=== PATIENT | male | born 1975 | race Caucasian/White ===

== ENCOUNTER 2020-09-10 21:50 | Observation (INO) | payer SELFPAY ==
[2020-09-10 21:54] VITALS: BP 158/97; PULSE 88; RESP 18; TEMP 36; O2SAT 95; BMI 32.1
[2020-09-10 22:09] VITALS: RESP 18
[2020-09-10] MEDS: Ondansetron 4 MG/2 ML Vial IV (22:56)
[2020-09-10] MEDS: HYDROmorphone 1 MG/ML Syringe IV (22:56)
[2020-09-10 23:10] LABS: Absolute Lymphocyte Count 2.16 X10^3/uL (0.83-4.51); Absolute Neutrophil Count 8.8 X10^3/uL (2.0-7.7); Basophil# 0.03 X10^3/uL; Basophil% 0.3 % (0-1); Eosinophil# 0.07 X10^3/uL; Eosinophils% 0.6 % (0-5); Hemoglobin 15.8 g/dL (13.0-16.5); Lymphocyte # 2.16 X10^3/ul (4.0); Lymphocyte % 18.3 % (19-41); Mean Corp Hgb Conc 34.3 g/dL (32-36); Mean Corpuscular Hgb 29.2 pg (27.0-32.0); Mean Corpuscular Volume 84.9 fL (80-94); Mean Platelet Vol. 8.2 fl (6.2-12.0); Monocyte# 0.69 X10^3/uL; Monocyte% 5.8 % (0-10); NRBC Flagged by Analyzer 0 % (0-5); Neutrophil # 8.77 X10^3/uL (2.7-7.7); Neutrophil % 74.3 % (47-70); Platelet Count 320 K/mm3 (150-450); RBC Distribution Width CV 12.5 % (11.6-14.6); RBC Distribution Width SD 38.3 fl (35.1-43.9); Red Blood Count 5.42 M/mm3 (4.6-6.2); White Blood Count 11.8 K/mm3 (4.4-11.0)
[2020-09-10 23:20] LABS: Anion Gap 6 (5-15); BUN 18 mg/dL (7-18); BUN/Creat Ratio 20.4 RATIO (10-20); Calcium,Total 8.8 mg/dL (8.5-10.1); Chloride 107 mmol/L (98-107); Creatinine, Serum 0.88 mg/dL (0.70-1.30); EST Glomerular Filtration Rate 99 mL/min (>60); Est Glom Filt Rate - Afr Amer 119 mL/min (>60); Glucose 127 mg/dL (74-106); Potassium 3.8 mmol/L (3.5-5.1); Sodium Level 139 mmol/L (136-145)
--- NOTE | 2020-09-10 23:48 | CT_ITS ---
STUDY: CT LUMBAR SPINE WITH CONTRAST REASON FOR EXAM: Male, 45 years old. LOW BACK PAIN RADIATING INTO LT LEG,PT HAS KNOWN DVT LT LEG AND RECENTLY STARTED XARELTO RADIATION DOSAGE (If Supplied By Facility): CTDIvol = ( 22.57 ) mGy, DLP = ( 683.93 ) mGycm TECHNIQUE: The patient was scanned in a multi detector CT scanner. High resolution transaxial imaging was performed following the intravenous administration of IV 100mL Isovue-370. Images were obtained from T11 to L5. Sagittal and coronal images were reconstructed. Individualized dose optimization techniques were used for this CT. COMPARISON: None FINDINGS: Normal lumbar lordosis. There is no substantial scoliosis. Normal vertebrae of the lumbar spine. L1-2: Normal endplates. Normal disc height and morphology. Normal bilateral facet joints. Normal central canal and bilateral lateral recesses. Normal bilateral intervertebral neural foramina. L2-3: There is mild disc space narrowing. There is a left lateral disc bulge with mild to moderate left neural foramina narrowing mild effacement of the anterior thecal sac. L3-4: There is mild disc space narrowing minimal broad disc bulge without significant neural foramina narrowing or central stenosis. L4-5: There is a minimal broad disc bulge without neural foramina narrowing or central stenosis. L5-S1: Air is disc space narrowing spondylosis. There is a broad left lateral disc osteophyte protrusion with the partially calcified disc extending well into the left neural foramen with moderate to severe left neural foramina narrowing. There is minimal central stenosis. There is minimal atherosclerotic disease within the left common iliac artery. CT/Spine Lumbar WITH Contrast IMPRESSION: Multilevel degenerative disc disease, most significant at the level of L5-S1 with a left lateral disc osteophyte protrusion and moderate to severe left neural foraminal narrowing. Given clinical history recommend consideration for follow-up MRI of the lumbar spine when clinically appropriate. Electronically Signed: Lorie Huff MD at 1:22 EDT Tel , Service support ,
--- NOTE | 2020-09-10 23:49 | ED.DCSUM_ITS ---
History of Present Illness Chief Complaint: Back Informant: Patient Onset: Weeks Context: Gradual Onset Timing: Waxes and wanes Current Severity: Severe Maximum Severity: Severe Narrative: Patient presents secondary to severe back pain secondary to sciatica. He states he has had sciatica previously. He is currently scheduled for MRI to be performed tomorrow. He presents via EMS tonight secondary to increased pain. He is currently on Neurontin, [place], and prednisone. Patient states is not really been able to walk for a week, requiring a walker to help him get around or a wheelchair. He was seen by his PCP on Wednesday and had an x-ray that showed chronic changes. He had a venous ultrasound of his left leg yesterday that shows an acute clot in the left gastrocnemius. He was started on Xarelto and has had 3 doses of this medication. - Past Medical History (1) Back pain Status: Chronic Past Medical History - Allergies and Home Meds Allergies/Adverse Reactions: Allergies No Known Allergies Allergy (Verified 09/10/20 21:53) Primary Care Physician: Evaristo Santoro DO [Primary Care Provider] - Lives: With Family Smoking Status: Never smoker Review of Systems General: Denies: Chills, Fever Eyes: Denies: Visual changes - bilaterally ENT: Denies: Bilateral ear pain Cardiovascular: Denies: Chest pain Respiratory: Denies: Dyspnea, Cough Gastrointestinal: Denies: Abdominal pain, Nausea, Vomiting, Diarrhea Musculoskeletal: Reports: Back pain, Extremity Pain Skin: Denies: Rash Neurological: Denies: Parasthesia Hematologic: Denies: Easy bruising, Easy bleeding Allergy: Denies: Uticaria Physical Exam Vital Signs/Narrative: Vital Signs Temp Pulse Resp BP Pulse Ox 09/10/20 22:09 18 09/10/20 21:54 96.8 F L 88 18 158/97 H 95 Inital Vital Signs reviewed: Yes General: Well nourished, Well developed Head: Normocephalic ENT: Moist mucous membranes Neck: Supple Cardiovascular: Regular rate, Regular rhythm Respiratory: No distress, CTA bilaterally Abdomen: Soft, Nontender Back: - - Pain in the left lower lumbar paraspinal muscles. Extremities: - - Tenderness along the lateral portion of the left lower leg. Strong distal pulses. Skin: Normal color Neurological: Alert, Oriented x3, - - Normal sensation on testing. Decreased range of motion secondary to pain. Psychological: Normal affect Diagnostic/Tx/Re-eval Impressions Lumbar Spine CT 09/10/20 23:48 IMPRESSION: Multilevel degenerative disc disease, most significant at the level of L5-S1 with a left lateral disc osteophyte protrusion and moderate to severe left neural foraminal narrowing. Given clinical history recommend consideration for follow-up MRI of the lumbar spine when clinically appropriate. Electronically Signed: Lorie Huff MD at 1:22 EDT Tel , Service support , 09/10/20 23:48 CT Lumbar [Spine Lumbar WITH Contrast] [CT] Stat Laboratory Results 09/10/20 09/10/20 23:00 23:00 WBC 11.8 H RBC 5.42 Hgb 15.8 Hct 46.0 MCV 84.9 MCH 29.2 MCHC 34.3 RDW Std Deviation 38.3 RDW Coeff of Carly 12.5 Plt Count 320 MPV 8.2 Immature Gran % (Auto) 0.700 Neut % (Auto) 74.3 H Lymph % (Auto) 18.3 L [place] % (Auto) 5.8 Eos % (Auto) 0.6 Baso % (Auto) 0.3 Absolute Neuts (auto) 8.8 H Absolute Lymphs (auto) 2.16 Nucleated RBC % 0 Sodium 139 Potassium 3.8 Chloride 107 Carbon Dioxide 26.0 Anion Gap 6 BUN 18 Creatinine 0.88 Estim Creat Clear Calc 100.40 Est GFR (MDRD) Af Amer 119 Est GFR (MDRD) Non-Af 99 BUN/Creatinine Ratio 20.4 H Glucose 127 H Calcium 8.8 - Medical Decision Making Patient has been given a total of 1.5 mg of Dilaudid along with 0.5 mg of Ativan. Because the patient was just started on Xarelto and had increased back pain a CT scan of the lumbar spine was obtained to rule out hemorrhage. CT reveals multilevel degenerative disc disease most significant at L5-S1 with left lateral disc osteophyte protrusion and moderate to severe left neural foraminal narrowing. MRI is recommended. At this time patient is still unable to get up and ambulate. I will speak with hospitalist regarding admission for pain control as well as obtaining MRI. Of note I was able to obtain the venous duplex report from [facility]. There was no evidence of clot in the femoral, popliteal, great saphenous, or peroneal veins. ED Disposition - Plan for ED Patient: Disposition: Acute Care Hospital [facility] Diagnosis: Intractable back pain Referrals: Evaristo Santoro DO [Primary Care Provider] -
[2020-09-11] VITALS (14 sets, daily range): BP systolic 120–188; BP diastolic 84–110; PULSE 73–114; RESP 17–22; TEMP 36.1–37.1; O2SAT 92–97; BMI 31.2; BMI 31.3
[2020-09-11] MEDS: HYDROmorphone 0.5 MG/0.5 ML SYRINGE IV (00:02)
[2020-09-11] MEDS: LORazepam 2 MG/ML Syringe 0.5 MG IV (00:28)
--- NOTE | 2020-09-11 01:51 | HP.PCM_ITS ---
Problem List (1) Back pain Status: Chronic (2) Intractable back pain Status: Acute History of Present Illness Date of Admission: 09/11/20 Chief Complaint: Back pain, left leg pain. The patient is a 45 year old M with no significant past medical history apart from chronic back pain presented to the emergency room because of back and left lower extremity pain. This patient does have a history of chronic back pain but over the last 8 days, he has been having increasing low back pain, constant severe pain, 10 out of 10 in severity, goes down along the posterior aspect of the left thigh as well as left leg, most severe at the left knee area, aggravated by any type of movement, has not able to to ambulate over the last couple of days, no relieving factors and no associated symptoms. He denied numbness or tingling. He denied mechanical fall or trauma. He denied stool or urine incontinence. He saw his PCP 6 days ago, was given prescription for prednisone, gabapentin and [employer] and he is supposed to have MRI lumbar spine done tomorrow at [facility]. He was diagnosed with acute DVT of the left gastrocnemius vein on venous Doppler that was done on September 09, 2020 at [facility] and he was started on Xarelto. In the emergency department, his blood pressure was slightly elevated, other vital signs were stable. His routine blood work was unremarkable. CT scan lumbar spine with contrast revealed multilevel degenerative disc disease, most significant at the level of L5-S1 with left lateral disc protrusion and moderate to severe left neuroforaminal narrowing. Patient received 2 doses of IV Dilaudid in the ED as well as Ativan x1 without significant improvement and he was not able to ambulate. He is being admitted for intractable low back pain for evaluation and treatment. Past Medical History Past Medical History (Chronic Problems): Chronic Problems Back pain (Chronic) Allergies No Known Allergies Allergy (Verified 09/10/20 21:53) Home Medications: Ambulatory Orders Medication Instructions Recorded Gabapentin [Neurontin] 1,200 mg PO BIDCM 09/10/20 Hydrocodone/Acetaminophen 1 ea PO Q6H PRN 09/10/20 [Hydrocodon-Acetaminophen 5-325] Prednisone 10 mg PO DAILY 09/10/20 Rivaroxaban [Xarelto] 15 mg PO BID 09/10/20 Surgical History: no surgical history Psychiatric History: No pertinent psych hx Lives: Spouse/ Significant Other Smoking Status: Never smoker Alcohol: None Drugs: None - *Family History Maternal History Items: No pertinent history Paternal History Items: No pertinent history Review of Systems Constitutional: Denies: Anorexia, Chills, Fever, Weakness Eyes: Denies: Blurred vision, Double vision, Drainage, Redness HEENT: Denies: Difficulty Hearing, Ear Pain, Eye Pain, Nasal Congestion, Sore Throat Cardiovascular: Denies: Chest Pain, Chest Pressure, Edema, Heaviness, Palpitations, Syncope Respiratory: Denies: Cough, Pleuritic Pain, Shortness of Breath, Shortness of breath at rest, Sputum production, Wheezing Gastrointestinal: Denies: Abdominal Pain, Constipation, Diarrhea, Nausea, Vomiting Genitourinary: Denies: Dysuria, Frequency, Hematuria Musculoskeletal: Reports: Back Pain, Leg Pain. Denies: Arm Pain, Foot Pain, Hand Pain Skin: Denies: Dryness, Rash Neurological: Denies: Balance problems, Blurred vision, Double vision, Change in Speech, Confusion, Headaches, Incoordination, Numbness, Tingling Psychiatric: Denies: Anxiety, Depression Endocrine: Denies: Change in Body Habitus, Polydipsia, Polyuria VTE Information - Inpt Only VTE Present on Admission: No VTE Mechan Device Prophylaxis: None VTE Pharm Prophylaxis ordered?: No Patient Problems: Active and Suspected Problems Intractable back pain (Acute) - Physical Exam Vitals/I&O's: Vital Signs Temp Pulse Resp BP Pulse Ox 96.8 F L 81 18 154/88 H 93 09/10/20 21:54 09/11/20 00:31 09/11/20 00:31 09/11/20 00:31 09/11/20 00:31 Oxygen Delivery Method Room Air Weight: 211 lb 10.3 oz Body Mass Index (BMI) 32.1 General: Alert, Oriented x3, Cooperative, - - He is in moderate to severe pain. HEENT: Atraumatic, PERRLA, EOMI, Normocephalic Oral: Moist Mucosa, No Gingival or Mucosal Lesions/ Ulcerations Neck: Supple, No JVD, Negative Carotid Bruits, Trachea Midline, Thyroid Normal Size and Texture Lungs: Clear to auscultation, Normal air movement, No rhonchi, No wheeze, No rales Cardiovascular: Regular rate, Regular Rhythm, Normal S1, Normal S2, PMI Normal Abdomen: Bowel Sounds Present, Soft, Non Tender, Non-Distended, No Hepato- splenomegaly Extremities: No clubbing, No cyanosis, No edema Skin: No rashes, No breakdown Lymphatic: No Cervical, Supraclavicular, or Inguinal Adenopathy Neurological: Cranial nerves II-XII grossly intact, Motor Exam 5/5 strength throughout Psych/Mental Status: Normal Affect, Appropriate, Alert and oriented to time, place, person, mood and affect Laboratory Results 09/10/20 23:00: WBC 11.8 H, RBC 5.42, Hgb 15.8, Hct 46.0, MCV 84.9, MCH 29.2, MCHC 34.3, RDW Std Deviation 38.3, RDW Coeff of Carly 12.5, Plt Count 320, MPV 8.2, Immature Gran % (Auto) 0.700, Neut % (Auto) 74.3 H, Lymph % (Auto) 18.3 L, [place] % (Auto) 5.8, Eos % (Auto) 0.6, Baso % (Auto) 0.3, Absolute Neuts (auto) 8.8 H, Absolute Lymphs (auto) 2.16, Nucleated RBC % 0 09/10/20 23:00: Sodium 139, Potassium 3.8, Chloride 107, Carbon Dioxide 26.0, Anion Gap 6, BUN 18, Creatinine 0.88, Estim Creat Clear Calc 100.40, Est GFR (MDRD) Af Amer 119, Est GFR (MDRD) Non-Af 99, BUN/Creatinine Ratio 20.4 H, Glucose 127 H, Calcium 8.8 Clinical Impression(s) from Imaging Studies Lumbar Spine CT 09/10/20 23:48 IMPRESSION: Multilevel degenerative disc disease, most significant at the level of L5-S1 with a left lateral disc osteophyte protrusion and moderate to severe left neural foraminal narrowing. Given clinical history recommend consideration for follow-up MRI of the lumbar spine when clinically appropriate. Electronically Signed: Lorie Huff MD at 1:22 EDT Tel , Service support , Assessment/Plan All Active Problems Intractable back pain (Acute) This is a 45 years old male patient presented to the emergency room because of low back pain as well as left lower extremity pain, found to have L5-S1 left lateral disc protrusion with moderate to severe left neural foraminal narrowing and he is being admitted for evaluation and treatment. #1 intractable low back/left lower extremity pain/sciatica/radiculopathy: In the setting of chronic back pain. CT scan of the lumbar spine with contrast reviewed as above. Patient received IV Dilaudid and Ativan in the ED without significant improvement, still not able to ambulate. Patient has been on prednisone as outpatient for the last 5 to 6 days with minimal improvement. [facility], IV fluids, IV morphine as needed for pain, start IV Decadron, Flexeril 3 times daily, Tylenol as needed, MRI lumbar spine without contrast, PT OT evaluation and treatment. #2 acute DVT of the left gastrocnemius vein: This was diagnosed on September 09, 2020, patient was started on Xarelto. Plan to continue Xarelto. #3 DVT prophylaxis: Continue Xarelto as above. This note was generated with [employer] dictation software. It may contain incorrect words, spelling, and punctuation that were not noted in checking the note before signing. OBSV E&M: 91510 Initial observation care L3
--- NOTE | 2020-09-11 02:31 | MRI_ITS ---
STUDY: MRI LUMBAR SPINE WITHOUT CONTRAST REASON FOR EXAM: Male, 45 years old. L5-S1 LEFT DISC PROTRUSION, LBP, LEFT LEG PAIN TECHNIQUE: Standardized fat and water weighted pulse sequences were obtained in the sagittal and axial planes. COMPARISON: None FINDINGS: T12-L1: Normal endplates. Normal disc height, hydration and morphology. Normal bilateral facet joints. Normal central canal and bilateral lateral recesses. Normal bilateral intervertebral neural foramina. Normal lumbar lordosis. There is no substantial scoliosis. Normal conus medullaris that terminates at the L1. L1-2: Normal endplates. Normal disc height, hydration and morphology. Normal bilateral facet joints. Normal central canal and bilateral lateral recesses. Normal bilateral intervertebral neural foramina. L2-3: Mild bilobed disc protrusion with a central annular tear produces mild spinal stenosis and mild bilateral neural foraminal stenosis. L3-4: Normal endplates. Normal disc height, hydration and morphology. Normal bilateral facet joints. Normal central canal and bilateral lateral recesses. Normal bilateral intervertebral neural foramina. L4-5: Normal endplates. Normal disc height, hydration and morphology. Normal bilateral facet joints. Normal central canal and bilateral lateral recesses. Normal bilateral intervertebral neural foramina. L5-S1: Mild bilateral facet hypertrophy with fluid in the facet joints consistent with instability. 2 mm retrolisthesis of L5 on S1 with a mild broad disc protrusion asymmetric to the left produces mild spinal stenosis, mild right neural foraminal stenosis and severe left neural foraminal stenosis with effacement the left L5 nerve root laterally. Associated Modic type II endplate changes. Normal visualized sacral ala. Severe friction related edema of the posterior subcutaneous fat. MRI/Spine Lumbar (Routine) IMPRESSION: Multilevel degenerative changes, as described above. Electronically Signed: Wes Madrid MD at 16:02 EDT Tel , Service support ,
[2020-09-11] MEDS: 0.9% Saline Lock 10 ML Syringe IV ×6 (03:29→21:50)
[2020-09-11] MEDS: 0.9% Normal Saline 1,000 ML 100 ML IV (03:29)
[2020-09-11] MEDS: oxyCODONE 5 MG Tablet PO (03:29)
[2020-09-11] MEDS: Morphine 2 MG/ML Syringe IV ×3 (04:48→14:15)
[2020-09-11] MEDS: cycloBENZAPRine HCl 10 MG Tablet PO ×3 (06:21→21:46)
[2020-09-11] MEDS: dexAMETHasone 4 MG/ML Vial IV ×3 (06:21→21:46)
[2020-09-11] MEDS: LORazepam 2 MG/ML Syringe 1 MG IV ×2 (08:44→14:39)
--- NOTE | 2020-09-11 09:22 | NURSING ---
MERI VILLAVICENCIO AWARE THAT PT IS NOT ABLE TO TOLERATE SUPINE POSITION EVEN WITH LUMBAR SUPPORT. PT FEELS MOST COMFORTABLY WITH KNEES HIGH IN AIR, BUT IS UNABLE TO FIT IN SCANNER. DR MARTINEZ NOTIFIED BY MARYJANE JEREZ ORDER GIVEN. AWAITING MED FROM FLOOR.
[2020-09-11] MEDS: HYDROmorphone 1 MG/ML Syringe IV ×2 (09:42→14:39)
--- NOTE | 2020-09-11 09:47 | NURSING ---
DILAUDID DELIVERED TO MRI BY SAUD JEREZ. PT GIVEN MED PER ORDER FOR PAIN 10/10 WHILE LYING FLAT. PT POSITIONED SUPINE COMFORTABLY POSSIBLE. STILL MOANING. EMOTIONAL SUPPORT AND ENCOURAGEMENT GIVEN.
--- NOTE | 2020-09-11 09:56 | NURSING ---
REPORT CALLED TO JESSICA DEGROOT RN. PT UNABLE TO TOLERATE MRI SUPINE WITH SUPPORTS. PT VERY RELAXED IN A POSITION OF COMFORT, BUT PAIN CONTINUES TO BE 10 /10 WHILE LAYING SUPINE.
[2020-09-11] MEDS: Gabapentin 600 MG Tablet 1200 MG PO ×2 (10:42→17:23)
[2020-09-11] MEDS: Rivaroxaban 15 MG Tablet PO ×2 (10:42→17:23)
--- NOTE | 2020-09-11 11:01 | CASEMGMT ---
Social Work Note Pt is listed as being self-pay. SW in to speak with pt. SW introduced self and role at [facility]. Pt is alert an orientated x3. Pt confirms that he doesn't have insurance. Pt states he currently works but his employer doesn't provide insurance. Pt states he's never applied for Medicaid before. SW provided pt with financial resources including HCAP application, Medicaid Application, Zoe Miles, [employer], People [employer] People, Rx assistance programs, Prescription Hope and Good [employer] information. Pt denied additional needs or concerns. Zainab Dean ROTO G[employer]URE PRESS OPERATOR, RECORDS MANAGEMENT MANAGER
--- NOTE | 2020-09-11 11:59 | PCM.PN.HOSP ---
Patient Problems: Active and Suspected Problems Intractable back pain (Acute) Subjective: Patient seen and examined. He was admitted with a complaint of intractable back pain. Does have a history of chronic back pain due to sciatica and states the pain has been worsening. He had no associated urine or stool incontinence. He was due to have an MRI today at [facility]. He had also recently been diagnosed with DVT of the left gastrocnemius vein on September 09, [address] of the lumbar spine done showed multilevel tests degenerative disease most significant at the level of L5-S1 with lateral left disc protrusion and moderate to severe left neural foraminal narrowing. He is currently on Dilaudid. Patient seen and examined. He still complains of being in pain. He states he could even straighten his left leg due to pain. Review of signs otherwise negative. He attempted to have MRI this morning but was unable to tolerate it due to pain and is due to reattempt later today. Labs and vitals reviewed. Patient has been tachypneic and tachycardic likely due to pain. Vitals/I&O's: Vital Signs Temp Pulse Resp BP Pulse Ox 97.9 F 110 H 22 H 188/110 H 95 09/11/20 08:40 09/11/20 09:55 09/11/20 09:55 09/11/20 09:55 09/11/20 09:55 Oxygen Flow Rate (L/min) 2 Oxygen Delivery Method Nasal Cannula Weight: 205 lb 11.06 oz Body Mass Index (BMI) 31.2 Intake and Output for Last 24 Hours 09/09/20 09/10/20 09/11/20 23:59 23:59 23:59 Intake Total 1166.67 / 1166.67 Output Total 500 / 500 Balance 666.67 / 666.67 General: Alert, Oriented x3, Cooperative, Lethargic, - - in moderate distress due to pain HEENT: Atraumatic, PERRLA, EOMI, Normocephalic Oral: Dry Mucosa Neck: Supple, No JVD, Negative Carotid Bruits Lungs: Clear to auscultation, Normal air movement Cardiovascular: Regular rate, Regular Rhythm, Normal S1, Normal S2, No murmurs Abdomen: Bowel Sounds Present, Soft, Non Tender, Non-Distended, No Hepato-splenomegaly Extremities: No clubbing, No cyanosis, No edema, Capillary Refill Less than 3 Seconds Skin: No rashes, No breakdown Musculoskeletal: No Tenderness to Palpation of Joints or Extremities Lymphatic: No Cervical, Supraclavicular, or Inguinal Adenopathy Neurological: Cranial nerves II-XII grossly intact, - - left leg flexed at knee, patient unable to straighten leg due to pain. Patient unable to even sit up due to pain Psych/Mental Status: Anxious Laboratory Results 09/10/20 23:00: WBC 11.8 H, RBC 5.42, Hgb 15.8, Hct 46.0, MCV 84.9, MCH 29.2, MCHC 34.3, RDW Std Deviation 38.3, RDW Coeff of Carly 12.5, Plt Count 320, MPV 8.2, Immature Gran % (Auto) 0.700, Neut % (Auto) 74.3 H, Lymph % (Auto) 18.3 L, [place] % (Auto) 5.8, Eos % (Auto) 0.6, Baso % (Auto) 0.3, Absolute Neuts (auto) 8.8 H, Absolute Lymphs (auto) 2.16, Nucleated RBC % 0 09/10/20 23:00: Sodium 139, Potassium 3.8, Chloride 107, Carbon Dioxide 26.0, Anion Gap 6, BUN 18, Creatinine 0.88, Estim Creat Clear Calc 100.40, Est GFR (MDRD) Af Amer 119, Est GFR (MDRD) Non-Af 99, BUN/Creatinine Ratio 20.4 H, Glucose 127 H, Calcium 8.8 Diagnostic Data Lumbar Spine CT 09/10/20 23:48 IMPRESSION: Multilevel degenerative disc disease, most significant at the level of L5-S1 with a left lateral disc osteophyte protrusion and moderate to severe left neural foraminal narrowing. Given clinical history recommend consideration for follow-up MRI of the lumbar spine when clinically appropriate. Electronically Signed: Lorie Huff MD at 1:22 EDT Tel , Service support , Lumbar Spine MRI 09/11/20 02:31 IMPRESSION: Multilevel degenerative changes, as described above. Electronically Signed: Wes Madrid MD at 16:02 EDT Tel , Service support , Current Medications Acetaminophen (Acetaminophen 325 Mg Tablet) 650 mg PO Q6H PRN PRN PRN Reason: Pain Score 1-10/Temp > 100.7 F Cyclobenzaprine HCl (Cyclobenzaprine Hcl 10 Mg Tablet) 10 mg PO TID [facility] Last Admin: 09/11/20 06:21 Dose: 10 mg Documented by: Dexamethasone Sodium Phosphate (Dexamethasone 4 Mg/Ml Vial) 4 mg IV Q8 [facility] Last Admin: 09/11/20 06:21 Dose: 4 mg Documented by: Gabapentin (Gabapentin 600 Mg Tablet) 1,200 mg PO BIDCM [facility] Last Admin: 09/11/20 10:42 Dose: 1,200 mg Documented by: Sodium Chloride () 1,000 mls @ 100 mls/hr IV .Q10H [facility] Stop: 09/11/20 12:30 Last Infusion: 09/11/20 10:45 Dose: 100 mls/hr Documented by: Morphine Sulfate (Morphine 2 Mg/Ml Syringe) 2 mg IV Q3H PRN PRN PRN Reason: Pain Score 6-10 Last Admin: 09/11/20 08:44 Dose: 2 mg Documented by: Ondansetron HCl (Ondansetron 4 Mg/2 Ml Vial) 4 mg IV Q8H PRN PRN PRN Reason: NAUSEA/VOMITING Oxycodone HCl (Oxycodone 5 Mg Tablet) 5 mg PO Q4H PRN PRN PRN Reason: Pain Score 4-5 Last Admin: 09/11/20 03:29 Dose: 5 mg Documented by: Rivaroxaban ([facility] 15 Mg Tablet) [facility] Last Admin: 09/11/20 10:42 Dose: 15 mg Documented by: Senna/Docusate Sodium (Senna/Docusate Sodium 1 Tablet) 2 tablet PO BID PRN PRN PRN Reason: Constipation Sodium Chloride (0.9% Saline Lock 10 Ml Syringe) 10 - 40 ml IV UD PRN PRN Reason: SALINE FLUSH Last Admin: 09/11/20 08:44 Dose: 10 ml Documented by: STROKE Vital Signs/Narrative: Vital Signs Temp Pulse Resp BP Pulse Ox 09/11/20 09:55 110 H 22 H 188/110 H 95 09/11/20 09:45 105 H 20 H 166/103 H 93 09/11/20 09:21 92 20 H 166/103 H 92 09/11/20 08:40 97.9 F 73 18 146/84 H 94 Medical Necessity - Tobacco Use Smoking Status: Never smoker Assessment/Plan All Active Problems Intractable back pain (Acute) # Intractable lower back pain likely due to sciatica and radiculopathy MRI of the lumbar spine showed multilevel degenerative changes on IV morphine, dexamethasone, gabapentin and flexeril PT/OT on board consider spine surgery consult # DVT of the left gastrocnemius vein: on xarelto. Will need to be on xarelto for 3-6 months. DVT prophylaxis: on therapeutic xarelto OBSV E&M: 04399 Subsequent observation care L2
[2020-09-11] MEDS: Acetaminophen 325 MG Tablet 650 MG PO (14:36)
[2020-09-11] MEDS: Ondansetron 4 MG/2 ML Vial IV (14:45)
--- NOTE | 2020-09-11 15:11 | NURSING ---
PT TOLERATING MRI POSITION MUCH BETTER. GIVEN ICE PACK TO LT ANKLE FOR COMFORT.
[2020-09-12 03:57] VITALS: BP 139/81; PULSE 75; RESP 18; TEMP 36.6; O2SAT 94
[2020-09-12] MEDS: Morphine 2 MG/ML Syringe IV (05:51)
[2020-09-12] MEDS: dexAMETHasone 4 MG/ML Vial IV ×2 (05:52→13:55)
[2020-09-12] MEDS: cycloBENZAPRine HCl 10 MG Tablet PO ×2 (05:52→13:55)
[2020-09-12] MEDS: 0.9% Saline Lock 10 ML Syringe IV ×2 (05:55)
[2020-09-12 07:40] VITALS: O2SAT 91
[2020-09-12 09:00] VITALS: BP 164/87; PULSE 89; RESP 16; TEMP 36.9; O2SAT 92
[2020-09-12] MEDS: Gabapentin 600 MG Tablet 1200 MG PO (09:08)
[2020-09-12] MEDS: Rivaroxaban 15 MG Tablet PO (09:08)
[2020-09-12] MEDS: Senna/Docusate Sodium 1 Tablet 2 TABLET PO (09:08)
--- NOTE | 2020-09-12 11:54 | DCINST_ITS ---
- Discharge Diagnoses Current Active Problems: Current Active and Chronic Problems Back pain (Chronic) Intractable back pain (Acute) You will use the following diet at home:: No restrictions Your food should be the consistency of: Regular Your liquids should be the consistency of: Regular/Thin Discharge Activity: Return to Normal Activity Weight Bearing Status: Weight bearing as tolerated Call your doctor if you observe: Fever of 101 or Higher, Shortness of breath, Uncontrolled pain Instructions: ED Back Pain Acute or Chronic, ED Neck Back Pain General Additional Instructions: to have outpatient physical therapy Allergies/Adverse Reactions: Allergies No Known Allergies Allergy (Verified 09/10/20 21:53) Medications to take at Discharge Gabapentin [Neurontin] 1,200 mg PO BIDCM 09/10/20 Hydrocodone/Acetaminophen [Hydrocodone-Acetamin 5-325 mg] 1 ea PO Q6H PRN 09/10/20 Prednisone 10 mg PO DAILY 09/10/20 Rivaroxaban [Xarelto] 15 mg PO BID 09/10/20 Primary Care Physician: Evairsto Santoro DO [Primary Care Provider] - Please follow up with your Primary Care Physician in: 1-2 weeks Test Results: Test results from this visit will be discussed in further detail at your follow- up appointment, if applicable. Please Follow Up With: Howard Shipley DO When: 2-3 weeks, call office to set up appointment Proposed Discharge Date: 09/12/20
[2020-09-12] MEDS: Acetaminophen 325 MG Tablet 650 MG PO (12:13)
[2020-09-12] MEDS: oxyCODONE 5 MG Tablet PO (12:14)
--- NOTE | 2020-09-12 13:59 | DS.PCM_ITS ---
Discharge Date and Diagnosis - Problem List Patient Problems: Active and Suspected Problems Intractable back pain (Acute) Date of Admission: 09/11/20 Date of Discharge: 09/12/20 - Primary Discharge Diagnosis Acute Problems: Active Problems Intractable back pain (Acute) lumbar spinal stenosis - Secondary Discharge Diagnosis Chronic Problems: Chronic Problems Back pain (Chronic) Hospital Course and Treatment Imaging Results: Diagnostic Data Lumbar Spine CT 09/10/20 23:48 IMPRESSION: Multilevel degenerative disc disease, most significant at the level of L5-S1 with a left lateral disc osteophyte protrusion and moderate to severe left neural foraminal narrowing. Given clinical history recommend consideration for follow-up MRI of the lumbar spine when clinically appropriate. Electronically Signed: Lorie Huff MD at 1:22 EDT Tel , Service support , Lumbar Spine MRI 09/11/20 02:31 IMPRESSION: Multilevel degenerative changes, as described above. Electronically Signed: Wes Madrid MD at 16:02 EDT Tel , Service support , Operations: None Procedures: None Summary of Care Provided: The patient is a 45 year old M with a pMH of chronic back pain due to a work related back injury. He was admitted via the ED on 09/12/2020 with a complaint of severe back and left lower extremity pain. Pain has been getting worse over the past 8 days prior to admission and pain was rated at 10 out of 10 and radiated down the posterior aspect of the left thigh as well as the left leg and was aggravated by movement. He had had difficulty ambulating because of the pain but denied any numbness or tingling or any urinary or bowel incontinence. He saw his PCP 6 days prior to admission and was given a prescription for prednisone, gabapentin and [place]. He was also diagnosed with acute DVT of the left lower extremity on 09/09/2020 at [facility] and started on Xarelto. He had been scheduled to have MRI of the lumbar spine done on outpatient basis at [facility] on 09/12/2020 but symptoms started so he came into the hospital. CT of the lumbar spine done showed multilevel degenerative disc disease most significant at the L5-S1 level with left lateral disc protrusion and moderate to severe left neuroforaminal narrowing. Was admitted to be managed for intractable back pain due to lumbar stenosis. He was placed on IV Dilaudid and Flexeril as well as gabapentin. Patient had MRI done on 09/11/2020 which showed multilevel degenerative disc disease with spinal stenosis and neuroforaminal stenosis. Physical therapy worked with patient and he was able to ambulate with assistance of a walker. Patient's pain improved with treatment. He remained stable and was discharged home on 09/13/2020 and is to have outpatient physical therapy. He was discharged with a prescription for Flexeril which he is taking in addition to his [place] that he takes at home and gabapentin. Patient was referred to Dr. Howard Shipley spinal surgery for evaluation. He is to follow-up with his primary care doctor and to book an appointment with spinal surgery. Patient seen and examined prior to discharge. He had no complaints and pain had improved. Review of symptoms otherwise negative. Labs and vitals reviewed. Home medication reviewed and reconciled. was by his bedside. [] O/E: Vital Signs Temp Pulse Resp BP Pulse Ox 98.4 F 89 16 164/87 H 92 09/12/20 09:00 09/12/20 09:00 09/12/20 09:00 09/12/20 09:00 09/12/20 09:00 General: Alert, Oriented x3, Cooperative HEENT: Atraumatic, PERRLA, EOMI, Normocephalic Oral: Dry Mucosa Neck: Supple, No JVD, Negative Carotid Bruits Lungs: Clear to auscultation, Normal air movement Cardiovascular: Regular rate, Regular Rhythm, Normal S1, Normal S2, No murmurs Abdomen: Bowel Sounds Present, Soft, Non Tender, Non-Distended, No Hepato- splenomegaly Extremities: No clubbing, No cyanosis, No edema, Capillary Refill Less than 3 Seconds Skin: No rashes, No breakdown Musculoskeletal: No Tenderness to Palpation of Joints or Extremities Lymphatic: No Cervical, Supraclavicular, or Inguinal Adenopathy Neurological: Cranial nerves II-XII grossly intact, Psych/Mental Status: flat affect Patient Problems: Active and Suspected Problems Intractable back pain (Acute) - Physical Exam Vitals/I&O's: Vital Signs Temp Pulse Resp BP Pulse Ox 98.4 F 89 16 164/87 H 92 09/12/20 09:00 09/12/20 09:00 09/12/20 09:00 09/12/20 09:00 09/12/20 09:00 Oxygen Flow Rate (L/min) 2 Oxygen Delivery Method Room Air Weight: 205 lb 11.06 oz Body Mass Index (BMI) 31.2 Intake and Output for Last 24 Hours 09/10/20 09/11/20 09/12/20 23:59 23:59 23:59 Intake Total 2500.00 / 2500.00 500 / 500 Output Total 1800 / 1800 400 / 400 Balance 700.00 / 700.00 100 / 100 Current Medications Acetaminophen (Acetaminophen 325 Mg Tablet) 650 mg PO Q6H PRN PRN PRN Reason: Pain Score 1-10/Temp > 100.7 F Last Admin: 09/12/20 12:13 Dose: 650 mg Documented by: Cyclobenzaprine HCl (Cyclobenzaprine Hcl 10 Mg Tablet) 10 mg PO TID [facility] Last Admin: 09/12/20 13:55 Dose: 10 mg Documented by: Dexamethasone Sodium Phosphate (Dexamethasone 4 Mg/Ml Vial) 4 mg IV Q8 [facility] Last Admin: 09/12/20 13:55 Dose: 4 mg Documented by: Gabapentin (Gabapentin 600 Mg Tablet) 1,200 mg PO BIDCM [facility] Last Admin: 09/12/20 09:08 Dose: 1,200 mg Documented by: Morphine Sulfate (Morphine 2 Mg/Ml Syringe) 2 mg IV Q3H PRN PRN PRN Reason: Pain Score 6-10 Last Admin: 09/12/20 05:51 Dose: 2 mg Documented by: Ondansetron HCl (Ondansetron 4 Mg/2 Ml Vial) 4 mg IV Q8H PRN PRN PRN Reason: NAUSEA/VOMITING Last Admin: 09/11/20 14:45 Dose: 4 mg Documented by: Oxycodone HCl (Oxycodone 5 Mg Tablet) 5 mg PO Q4H PRN PRN PRN Reason: Pain Score 4-5 Last Admin: 09/12/20 12:14 Dose: 5 mg Documented by: Rivaroxaban (Rivaroxaban 15 Mg Tablet) 15 mg PO BIDCM [facility] Last Admin: 09/12/20 09:08 Dose: 15 mg Documented by: Senna/Docusate Sodium (Senna/Docusate Sodium 1 Tablet) 2 tablet PO BID PRN PRN PRN Reason: Constipation Last Admin: 09/12/20 09:08 Dose: 2 tablet Documented by: Sodium Chloride (0.9% Saline Lock 10 Ml Syringe) 10 - 40 ml IV UD PRN PRN Reason: SALINE FLUSH Last Admin: 09/12/20 05:55 Dose: 10 ml Documented by: Discharge Diet: Low fat/ Low Cholesterol Discharge Activity: Return to Normal Activity Weight Bearing Status: Weight bearing as tolerated Call your doctor if you observe: Fever of 101 or Higher, Shortness of breath, Uncontrolled pain Home Medications: Medications to take at Discharge Gabapentin [Neurontin] 1,200 mg PO BIDCM 09/10/20 Hydrocodone/Acetaminophen [Hydrocodone-Acetamin 5-325 mg] 1 ea PO Q6H PRN 09/10/20 Prednisone 10 mg PO DAILY 09/10/20 Rivaroxaban [Xarelto] 15 mg PO BID 09/10/20 cycloBENZAPRine HCl [Flexeril] 10 mg PO TID #90 tab 09/12/20 Following Prescriptions Were Given to Patient: cycloBENZAPRine HCl [Flexeril] 10 mg PO TID #90 tab Transmission Status: Received by [id number] Primary Care Physician: Evaristo Santoro DO [Primary Care Provider] - Please follow up with your Primary Care Physician in: 1-2 weeks Please Follow Up With: Howard Shipley DO When: 2-3 weeks, call office to set up appointment Patient Instructions: ED Back Pain Acute or Chronic, ED Neck Back Pain General Disposition: Home - with outpatient physical therapy Minutes spent on discharge:: 35 Patient Condition:: Stable Medical Necessity - Tobacco Use Smoking Status: Never smoker Meaningful Use Info Meaningful Use Diagnoses (Choose all that apply): None applicable OBSV E&M: 77095 Observation care discharge
== END 2020-09-12 14:12 | disposition home or self-care (01) ==
LOC: ED 09-11 01:29 → MS3 09-11 03:04
PROVIDERS: Admitting Provider Hospitalist; Emergency Provider Emergency Medicine; PCP Preventive Medicine Occupational Medicine; Referring Provider Hospitalist; Visit Provider Student in an Organized Health Care Education/Training Program
DX: M48.061 Spinal stenosis, lumbar region without neurogenic claudication (principal); M54.30 Sciatica, unspecified side; I82.462 Acute embolism and thrombosis of left calf muscular vein; Z79.01 Long term (current) use of anticoagulants; G89.29 Other chronic pain; Z79.899 Other long term (current) drug therapy; Z79.52 Long term (current) use of systemic steroids
CPT/HCPCS: 72132; 72148; 80048; 85025; 96361; 96374; 96375; 96376; 97161; 97166; 99218; 99285; J7030; Q9967; A4216; G0378; J2405

== ENCOUNTER 2020-09-16 12:43 | Outpatient (RCR) | payer SELFPAY ==
[2020-09-11 02:32] VITALS: BMI 31.2
--- NOTE | 2020-09-16 13:58 | HP.PTEVAL_ITS ---
Patient's Visit Information SARAI MELENDEZ is a 45 year old M referred to Physical Therapy by Dr. Evaristo Santoro DO with a diagnosis of Intractable LBP. Date of Evaluation: 09/16/20 Physical Therapist: Eddie Spencer, CATHYT, OCS, CSCS - Visit Plan Frequency: 2-3x /Week Duration: 4-6 Weeks Plan: 2-3x/week for 4 weeks for(pt has blood clot in L LE at this point, care with L LE movements and no L leg massage or rollout). 1. start with supine hook lying TENS with MH. 2. Gentle pelvic adn LB ROM movmeents progressing to gentle core strength to tolerance. Pt very painful at initial eval down left leg and hard to move, has been sitting for two weeks and has not improved at all. I took him to Dr. Lauren office to schedule appointment and will work with him until they have a better solution. - Subjective Hasd a bad back for years, disc problems, felt some sciatic pain. Overdid it around the house two weeks ago ad got horrible pain. Had to sit up in chair through night and day and hard to move. Dr. Santoro prescribed pain killers fr om his office. Got prednisone and gabapentin. Checked for blood clot behind L knee and has one. Pain is in back and down L leg and L ankle. Most of the horrible pain is at L knee and L ankle. Constant unless on medication. Hurt bad last night. Got another pain killer that he just took(oxycodone). R leg is fine. Gets some numbness and tingling in L foot but not much or often. sleeps in recliner but not very well. Not getting through the night. Can't lie on back. Not sure what he overdid it with but was lifting bathroom floor tile. 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 Using ladder. Has been off for two weeks. Uses WC to get around, needs help getting dressed. has walker. - Pain L leg Pain Intensity (Out of 10): 3 Pain Intensity Range: 0, 10 - Objective Patient is iwth his and is pushed back to eval room in as he cannot stand up tall to walk. He trasnfers hunched over but I hesitant to WB L. Extension of LB is to neutral with pain down L leg to ankle laterally increased max. R SB hurts L leg adn L SB more comfortable. Unable to flexion. Trasnfer to supine Painful but able, lying flat on back needs legs elevated, Tranfer back to sit I but qucik and painful. + L slump and SLR. L leg slightly swollen distally. reflexes 1/3 patella and achilles aB/. Sensation LE WNL to gross light touch. Strength LE 4/5 B without obvious myotomal abnormalities. Pt moving fair but moaning in pain most of session and not responsive to TENS or ice or gentle pelvic movements, Appeared most comfortable lying down. - Goals Goal 1:: stand up tall without pain. Goal Time Frame: 4-6 Weeks Goal 2:: Pain 2/10 at workst and 75% improved Goal Time Frame: 4-6 Weeks Goal 3:: Pt able to consider RTW Goal Time Frame: 4-6 Weeks Goal 4:: Sleep without waking due to pain Goal Time Frame: 4-6 Weeks - Rehabilitation Potential Physical Therapy Diagnosis: Intractable LBP Rehabilitation Potential: Fair - Anticipated Interventions Patient/Client Instruction: Educate patient on: Condition, Plan of Care For the Purpose of:: To decrease pain, To improve muscle performance and motor function, To increase tolerance to activity/condition/position, To improve ability of physical actions for home/community/work/leisure Therapeutic Exercise to Include: Strength training, Postural training, Passive ROM, Active ROM, Dynamic Lumbar Stabilization For the Purpose of:: To decrease pain, To increase ROM, To increase tolerance to activity/condition/position, To improve ability of physical actions for home/community/work/leisure Manual Therapy Techniques to Include: Passive ROM For the Purpose of:: To decrease pain TENS: Yes Thermo therapy (hot pack): Yes For the Purpose of:: To decrease pain, To increase ROM Thank you for the opportunity to evaluate your patient. For Medicare and Medicare HMO plans, please review the plan of care and approve it. It will need to be FAXED BACK to us at [phone] for Medicare purposes. For Medicare only, by signing this I certify the plan of care. Please let me know if there are questions or concerns regarding this plan of care. Physician Signature: Date:
--- NOTE | 2020-10-29 18:18 | HP.PT.NRP ---
SARAI MELENDEZ was seen in my office for initial evaluation on 09/16/20. The following Plan of Care was established for this patient: Initial Frequency: 2-3x /Week Initial Duration: 4-6 Weeks Patient/Client Instruction: Educate patient on: Condition, Plan of Care For the Purpose of:: To decrease pain, To improve muscle performance and motor function, To increase tolerance to activity/condition/position, To improve ability of physical actions for home/community/work/leisure Therapeutic Exercise to Include: Strength training, Postural training, Passive ROM, Active ROM, Dynamic Lumbar Stabilization For the Purpose of:: To decrease pain, To increase ROM, To increase tolerance to activity/condition/position, To improve ability of physical actions for home/community/work/leisure Manual Therapy Techniques to Include: Passive ROM For the Purpose of:: To decrease pain TENS: Yes Thermo therapy (hot pack): Yes For the Purpose of:: To decrease pain, To increase ROM This patient was last seen in our office 09/16/20. Pertinent comments regarding their Physical therapy will appear below: Pt seen for evaluation adn POC established. Pt did not schedule or attend any visits. at this point, it has been over 5 weeks and I will disocntinue due to nonattendance. At this point I will be discontinuing this patient from physical therapy. I would be happy to see this patient again in the future if found appropriate by the physician. Thank you! Eddie Spencer, DPT, OCS, CSCS
== END 2020-09-16 19:00 | disposition home or self-care (01) ==
LOC: PT 12:43
PROVIDERS: PCP Preventive Medicine Occupational Medicine; Referring Provider Preventive Medicine Occupational Medicine; Visit Provider Preventive Medicine Occupational Medicine
DX: M54.9 Dorsalgia, unspecified (principal)
CPT/HCPCS: 97014; 97162; G0283